=== PATIENT | female | born 2005 | race Hispanic/Latino ===

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

== ENCOUNTER 2023-12-08 03:24 | Observation (INO) | payer OTHER ==
[~2023-12-08] VITALS: Ht 162.6 cm; Wt 84.4 kg
[~2023-12-08 03:24] MED LIST: PREDNISONE20 MG PO
[2023-12-08 04:07] LABS: BILIRUBIN, URINE NEGATIVE (negative); BLOOD/HGB, URINE NEGATIVE (Negative); KETONE, URINE NEGATIVE (Negative); LEUK ESTERASE, URINE SMALL (negative); NITRITE, URINE NEGATIVE (negative); PH, URINE 7.5 (5-7)
[2023-12-08 04:19] LABS: BACTERIA, URINE 1+ /hpf (negative); CASTS, URINE NONE SEEN \\lpf; COLLECTION TYPE, URINE CLEAN CATCH; CRYSTALS, URINE AMORPHOUS PHOSPH 1+ (0-1+); EPITHELIAL CELLS, URINE SQUAMOUS 2+ /lpf (0-1+); REFLEX CULTURE, URINE No (No)
[2023-12-08 04:24] LABS: RDW 13.3 (10.5-15.0)
[2023-12-08 04:27] LABS: BASOPHILS 0.8 % (0-2); EOSINOPHILS 1.2 % (0-6); HEMATOCRIT 39.8 % (35.0-50.0); HEMOGLOBIN 13.5 g/dL (12.0-18.0); MCH 30.7 (27-36); MCHC 33.8 g/dl (30-36); MCV 90.8 fl (81-99); PLATELET COUNT 230 K/uL (140-440); RBC 4.38 M/ul (4.3-5.7)
[2023-12-08 04:42] LABS: ABO A; RH POSITIVE
[2023-12-08] MEDS ORDERED: miSOPROStoL 200 MCG TAB SL SCH (05:30)
[2023-12-08] MEDS ORDERED: ondansetron HCL 4 MG/2 ML VIAL IV PRN (05:30)
[2023-12-08] MEDS ORDERED: LACTATED RINGER'S 1,000 ML IV SCH (05:30)
[2023-12-08 05:48] VITALS: BP 125/85
[2023-12-08 06:05] LABS: N. GONORRRHOEAE BY PCR NOT DETECTED (NOT DETECT)
[2023-12-08] MEDS ORDERED: MAGNESIUM HYDROXIDE/AL HYDROX 30 ML CUP PO PRN (07:15)
[2023-12-08] MEDS ORDERED: CALCIUM CARBONATE 500 MG CHEW PO PRN (07:15)
[2023-12-08] MEDS ORDERED: LIDOCAINE 2% VISCOUS 6 ML SYR TOP ONE (07:15)
[2023-12-08] MEDS ORDERED: OXYTOCIN/DEXTROSE 5% 20 UNITS/100 ML BAG IV SCH ×2 (07:15→08:15)
--- NOTE | 2023-12-08 07:17 | PR ---
[facility] [address] [facility] [place], [place] [address] Signed Progress Notes IP Datetime Report Generated by CPMina: 12/08/2023 07:16 PROGRESS NOTES: [id number] Impression: Normal Progression of Labor Procedures: Artificial ROM Plan: Continue Present Management VITAL SIGNS: [id number] Vital Signs: Reviewed; Within Normal Limits EXAM: [id number] Dilatation: 3.0 Contractions: not picking up well MEMBRANES: [id number] Comments: Pt c/o increasing pressure. Amniotic sac visible at introitus and approx 6 cm beyond with bearing down but fetus still at cervix. AROM done with moderate amount clear fluid. Will continue to wait for fetus to come down farther. She declines any meds for pain at this time. FETUS A: [id number] Presentation: Breech FETUS B: [id number] Signing Physician: Nhung Stubbs MD Copies: ~ *Electronically Signed* 12/08/23 07 NHUNG STUBBS MD PATIENT NAME: DEBRA CARSON PROGRESS NOTE DATE OF : 03 PHYSICIAN: NHUNG STUBBS MD RPT #: [id number] REPORT IS CONFIDENTIAL AND NOT TO BE RELEASED WITHOUT AUTHORIZATION
[2023-12-08] MEDS ORDERED: OXYTOCIN/0.9 % SODIUM CHLORIDE 500 ML IV ONE (08:02)
[2023-12-08] MEDS ORDERED: KETOROLAC TROMETHAMINE 30 MG/ML VIAL ONE (08:05)
[2023-12-08] MEDS ORDERED: KETOROLAC TROMETHAMINE 30 MG/ML VIAL IV STA (08:12)
--- NOTE | 2023-12-08 09:44 | NUR ---
HS CALLED AT 7:45. PT WAS HAVING A MISCARRIAGE AND REQUESTED PASTORAL CARE. PT WAS CALM WHEN I WANKEN IN THE ROOM. PT WANTED [facility] TO COME. I PRAYED WITH PATIENT AND PROVIDED PASTORAL CARE. CALLED FATHER LINDSAY AND LEFT A MESSAGE. WENT BACK UP TO [facility]. STAYED WITH NURSE WHILE SHE TOOK STATISTICS OF BABY THEN WENT BACK IN TO CHECK ON PT. SINCE FATHER LINDSAY WAS NOT AVAILABLE I OFFERED TO CALL DEACON WINSTON. PT WANTED ME TO CALL DEACON WINSTON. CALLED DEACON MCKEON AND LEFT MESSAGE. WENT WITH NURSE TO BRING BABY TO PT. PRAYED WITH PT AND FAMILY AGAIN. PROVIDED PASTORAL CARE WHILE FAMILY HELD BABY THEN TOOK BABY BACK TO NURSE. CHECKED IN WITH PT AGAIN AND GAVE HER GRIEF INFO. LET PT KNOW IF SHE NEEDED ME I COULD COME BACK. GAVE STAFF DEMISE FORM FOR PT CHART AND LAB.
--- NOTE | 2023-12-11 14:37 | NUR ---
PT PRESENTED AT [facility] WITH QUESTIONS REGARDING BURIAL. JERO HELLER REFERRED PT TO ME. I ANSWERED HER QUESTIONS, INDICATING I WOULD VERIFY RELEASE FROM PATHOLOGY AND THEN WOULD COORDINATE WITH FR. TROY FOR BURIAL TIME AND WOULD LET HER KNOW WHAT HAD BEEN ARRANGED. PT INDICATED UNDERSTANDING AND TOLD ME BABY WAS TO BE NAMED NNEKA. WILL CONFIRM NAME BEFORE GRAVE MARKER IS ORDERED.
== END 2023-12-08 12:40 | disposition home or self-care (01) ==
LOC: ED 03:24 → FBC 03:25
PROVIDERS: Emergency Medicine; ADMIT Obstetrics & Gynecology; ATTEND Obstetrics & Gynecology
DX: O34.32 Maternal care for cervical incompetence, second trimester (principal); Z3A.19 19 weeks gestation of pregnancy; Z37.1 Single stillbirth
CPT/HCPCS: 36415; 76815; 81001; 85025; 85027; 86900; 86901; 87491; 96374; 96375; 96376; 99285-25; G0378; J1885; J2405; J2590; J7121

== ENCOUNTER 2024-06-28 09:25 | Emergency (ER) | payer OTHER ==
[~2024-06-28] VITALS: Ht 152.4 cm; Wt 94.6 kg
[2024-06-28] MEDS ORDERED: OXYMETAZOLINE HCL 30 ML BTL NAS ONE (09:45)
[2024-06-28 09:55] VITALS: BP 137/89
== END 2024-06-28 09:55 | disposition home or self-care (01) ==
LOC: ED 09:25
DX: J06.9 Acute upper respiratory infection, unspecified (principal); H65.91 Unspecified nonsuppurative otitis media, right ear
CPT/HCPCS: 99283